=== PATIENT | female | born 1975 | race Caucasian/White ===

== ENCOUNTER 2023-09-03 09:14 | Emergency (ER) | payer MEDICAID, SELFPAY ==
[2023-09-03 09:15] VITALS: BP 152/92; PULSE 92; RESP 18; TEMP 36.4; O2SAT 98; BMI 30.3
--- NOTE | 2023-09-03 09:21 | EDS_ITS ---
HPI History of Present Illness HPI Narrative: Patient presents with redness and swelling to her right great toe that has been getting worse over the past week. Patient states it is gradually getting worse. Patient describes her pain as sharp. Patient states it is worse with ambulation. Patient states nothing seems to help with the pain. Patient denies any paresthesias or weakness. Patient denies any fevers or chills. Patient admits to some purulent drainage from along the right great toenail margin. Patient denies any trauma or injury. Chief Complaint: Wound Informant: patient Onset/Context/Timing Onset: Weeks (1) Context: Gradual Onset Timing: Continuous Quality of Pain: Sharp Location: Right great toe Worsened by: Ambulation Relieved by: Rest Associated Symptoms Associated Symptoms: Negative for Parasthesia or Weakness Narrative Tetanus Immunization: 5-10 years [facility] Medical History (Updated 09/03/23 @ 11:[address] Cesar Simpson, ) Hypercholesterolemia Hypertension Diabetes mellitus Home Medications ?Medication ?Instructions ?Recorded ?Last Taken ?Type cephalexin 500 mg capsule 500 mg PO Q6 #40 CAPSULES 09/03/23 Unknown Rx Allergy/AdvReac Type Severity Reaction Status Date / Time acetaminophen (From Allergy PT UNABLE Verified 09/03/23 09:15 Darvocet-N) TO RESPOND-NEEDS F/U propoxyphene (From Allergy PT UNABLE Verified 09/03/23 09:15 Darvocet-N) TO RESPOND-NEEDS F/U Surgical History (Updated 09/03/23 @ 11:[address] Cesar Simpson, ) Hx of oophorectomy Hx of cholecystectomy Hx of appendectomy Social History (Updated 09/03/23 @ 11:[address] Cesar Simpson DO) Smoking Status: Current every day smoker tobacco type: cigarettes ROS ROS ED Constitutional Constitutional ED: Denies chills or fever(s) Eyes Eyes: Denies blurry vision or change in vision ENT ENT ED: Denies rhinorrhea or sore throat Cardiovascular Cardiovascular: Denies chest pain or palpitations Respiratory/Chest Respiratory/Chest: Denies cough or dyspnea Gastrointestinal Gastrointestinal: Reports nausea and vomiting Genitourinary Genitourinary ED: Denies dysuria or hematuria Musculoskeletal Musculoskeletal: Denies back pain or neck pain Integumentary Denies abscess or rash Neurologic Neurologic: Reports headache(s); Denies weakness Allergic/Immunologic Allergic/Immunologic ED: Denies mouth swelling or urticaria EXAM Physical Exam Const Vital Signs: 09/03/23 09:15 Temperature 97.6 F L Temperature Source Temporal Pulse Rate 92 Respiratory Rate 18 Blood Pressure 152/92 H Blood Pressure Mean 112 Pulse Ox 98 Oxygen Delivery Method Room Air Positive well nourished and well developed General Appearance ED: well developed and NAD HEENT Reports moist mucous membranes Neck full ROM and supple Extremity Extremity Narrative: There is edema, erythema, and tenderness over the right great toe along the lateral nail margin. There is some mild purulent drainage noted. There is no fluctuance noted. Sensation was intact to light touch in all digits. Capillary refill was less than 2 seconds in all digits. Pedal pulses are equal bilaterally. There is good range of motion of the right great toe. Neuro oriented x3, CN's II-XII intact bilaterally, moves all extremities and no sensory deficits noted Sensorium / Orientation: alert Motor Exam: strength 5/5 throughout Psych mental status grossly normal MDM MDM MDM Narrative Medical decision making narrative: Differential diagnosis includes paronychia, osteomyelitis, diabetic foot wound, and cellulitis. CBC will be obtained to assess for leukocytosis. Basic metabolic profile will be obtained to assess for electrolyte abnormality and renal function. X-rays of the right foot will be obtained to assess for osteomyelitis. Treatment and Re-Evaluation Narrative: Patient was given a dose of Ancef here. Patient was advised of her findings. Patient was given a prescription for Keflex. Patient was instructed to clean the wounds at least twice daily. Patient was instructed use warm water soaks. Patient was instructed to follow-up with her primary care physician in 3 to 5 days for reevaluation. Patient understood and was agreeable with the plan. All questions were answered. Discharge Plan Triage Chief Complaint: Wound ED Provider: Cesar Simpson Dx/Rx/DC Orders Clinical Impression: Paronychia of great toe, right, Hypertension, Tobacco use disorder, Diabetes mellitus Instructions: ED Paronychia of the Finger or Toe Prescriptions: New cephalexin 500 mg capsule 500 mg PO Q6 Qty: 40 0RF Print Language: Turkish Disposition Disposition: Home, Self Care
[2023-09-03 09:23] VITALS: BP 152/92; PULSE 92; RESP 18; TEMP 36.4; O2SAT 98
--- NOTE | 2023-09-03 09:38 | RAD_ITS ---
STUDY: X-RAY - RIGHT FOOT CLINICAL: Female, 47 years old. Injury/Pain TECHNIQUE: 3 view(s) of the foot. COMPARISON: None. FINDINGS: Normal talus, calcaneus, and tarsal bones. Normal visualized subtalar, talonavicular, calcaneocuboid, tarsal and tarsometatarsal articulations. Normal metatarsi. Normal metatarsophalangeal joint of the great toe. Normal tibial and fibular sesamoid bones. Normal interphalangeal joint of the great toe. Normal phalanges of the great toe. Normal second through fifth metatarsophalangeal joints. Normal interphalangeal joints and phalanges of the lesser toes. The soft tissue structures are unremarkable. There is no demonstrated fracture. RAD/Foot min 3 Views IMPRESSION: Normal x-ray examination of the foot. Electronically Signed: Edwin Gomez MD at 10:53 EDT ,
[2023-09-03] MEDS: Cefazolin 1 GM/50 ML BAG IV (10:06)
[2023-09-03 10:14] LABS: Absolute Lymphocyte Count 3.29 X10^3/uL (0.83-4.51); Absolute Neutrophil Count 7.1 X10^3/uL (2.0-7.7); Basophil# 0.04 X10^3/uL; Basophil% 0.3 % (0-1); Eosinophil# 0.26 X10^3/uL; Eosinophils% 2.2 % (0-5); Hematocrit 37.9 % (37-47); Hemoglobin 12.8 g/dL (12.0-15.0); Lymphocyte # 3.29 X10^3/ul (0.83-4.51); Lymphocyte % 28.3 % (19-41); Mean Corp Hgb Conc 33.8 g/dL (32-36); Mean Corpuscular Volume 85.9 fL (81-99); Mean Platelet Vol. 9.8 fl (6.2-12.0); Monocyte# 0.89 X10^3/uL; Monocyte% 7.7 % (0-10); NRBC Flagged by Analyzer 0 % (0-5); Neutrophil % 61.2 % (47-70); Platelet Count 317 K/mm3 (150-450); RBC Distribution Width CV 12.5 % (11.6-14.6); RBC Distribution Width SD 39.1 fl (35.1-43.9); Red Blood Count 4.41 M/mm3 (4.2-5.4); White Blood Count 11.6 K/mm3 (4.4-11.0)
[2023-09-03 10:17] VITALS: BP 152/92; PULSE 98; RESP 14; TEMP 36.4; O2SAT 98
[2023-09-03 10:23] LABS: Anion Gap 5 (5-15); BUN 18 mg/dL (7-18); BUN/Creat Ratio 19.4 RATIO (10-20); Calcium,Total 9.5 mg/dL (8.5-10.1); Chloride 100 mmol/L (98-107); Creatinine, Serum 0.93 mg/dL (0.55-1.02); EST Glomerular Filtration Rate 68 mL/min (>60); Est Glom Filt Rate - Afr Amer 83 mL/min (>60); Estimated Creatinine Clearance 75.81 ml/min; Glucose 351 mg/dL (74-106); Potassium 4.4 mmol/L (3.5-5.1); Sodium Level 134 mmol/L (136-145)
[2023-09-03 11:29] VITALS: BP 156/77; PULSE 88; RESP 14; TEMP 37; O2SAT 99
== END 2023-09-03 11:30 | disposition home or self-care (01) ==
LOC: ED 11:23
PROVIDERS: Emergency Provider Emergency Medicine; Visit Provider Emergency Medicine
DX: L03.031 Cellulitis of right toe (principal); E11.9 Type 2 diabetes mellitus without complications; I10 Essential (primary) hypertension; E78.00 Pure hypercholesterolemia, unspecified; F17.210 Nicotine dependence, cigarettes, uncomplicated
CPT/HCPCS: 73630; 80048; 85025; 96365; 99283

== ENCOUNTER 2023-10-09 15:29 | Emergency (ER) | payer MEDICAID, SELFPAY ==
[2023-10-09 15:31] VITALS: BP 155/82; PULSE 89; RESP 18; TEMP 36.1; O2SAT 97; BMI 29.1
--- NOTE | 2023-10-09 15:44 | EX.ED.GENINJ ---
HPI History of Present Illness Chief Complaint: Head Injury Informant: patient Onset/Context/Timing Onset: Days (2 days ago) Mechanism/Context: Blunt Injury and Incised Location of pain/injuries: - (Right temporal area) Quality of Pain: Sharp Location: Right temporal area Worsened by: Bright lights Relieved by: Nothing Associated Symptoms Associated Symptoms: Negative for Parasthesias, Weakness, Loss of function, Inability to ambulate, Loss of consciousness or Amnesia Narrative Narrative: Patient presents with a head injury that occurred 2 days ago. Patient states she was on the left and hit her head on a metal shelf. Patient states she did have a open wound to her right temporal area. Patient states the bleeding stopped after couple minutes. Patient states she cleaned the area with peroxide after work. Patient states the pain has been getting progressively worse. Patient describes the pain as sharp. Patient states it is worse with bright lights. Patient states nothing seems to help with it. Patient denies any loss of consciousness. Patient admits to some subjective fevers and chills. Tetanus Immunization: 5-10 years [facility] Medical History Hypercholesterolemia Hypertension Diabetes mellitus Home Medications ?Medication ?Instructions ?Recorded ?Last Taken ?Type cephalexin 500 mg capsule 500 mg PO Q6 #40 CAPSULES 10/09/23 Unknown Rx Allergy/AdvReac Type Severity Reaction Status Date / Time acetaminophen (From Allergy PT UNABLE Verified 10/09/23 15:30 Darvocet-N) TO RESPOND-NEEDS F/U Fish Containing Products Allergy Anaphylaxis Verified 10/09/23 15:30 (seafood) propoxyphene (From Allergy PT UNABLE Verified 10/09/23 15:30 Darvocet-N) TO RESPOND-NEEDS F/U Surgical History Hx of oophorectomy Hx of cholecystectomy Hx of appendectomy Social History Smoking Status: Former smoker ROS ROS ED Constitutional Constitutional ED: Reports chills, fever(s) and subjective Eyes Eyes: Denies blurry vision or change in vision ENT ENT ED: Denies rhinorrhea or sore throat Cardiovascular Cardiovascular: Denies chest pain or palpitations Respiratory/Chest Respiratory/Chest: Reports cough; Denies dyspnea Gastrointestinal Gastrointestinal: Reports nausea and vomiting Genitourinary Genitourinary ED: Denies dysuria or hematuria Musculoskeletal Musculoskeletal: Reports back pain; Denies neck pain Integumentary Denies abscess or rash Neurologic Neurologic: Reports headache(s); Denies weakness Allergic/Immunologic Allergic/Immunologic ED: Denies mouth swelling or urticaria EXAM Physical Exam Const Vital Signs: 10/09/23 15:31 10/09/23 15:41 Temperature 97 F L Temperature Source Temporal Pulse Rate 89 Respiratory Rate 18 Respiratory Effort Normal Non-Labored Respiratory Depth Normal Respiratory Pattern Normal Blood Pressure 155/82 H Blood Pressure Mean 106 Pulse Ox 97 Oxygen Delivery Method Room Air Room Air Positive well nourished and well developed General Appearance ED: well developed and NAD HEENT HEENT Narrative: There is tenderness, erythema, and mild fluctuance over the right temporal area. There is a pustule noted. There is no active discharge or drainage noted. There is no bony crepitance or step-off noted. Neck full ROM Neuro oriented x3, CN's II-XII intact bilaterally, moves all extremities, no focal motor deficits and no sensory deficits noted [place] Coma Scale: document GCS findings Spontaneous Obeys Commands Oriented 15 Sensorium / Orientation: alert Motor Exam: strength 5/5 throughout Psych thought process normal MDM MDM MDM Narrative Medical decision making narrative: Patient was advised of the need for incision and drainage. Patient is agreeable with this. Informed consent was obtained. The area was cleaned with chlorhexidine prep. The area was anesthetized with 1% plain lidocaine locally. A small cruciate incision was made using an 11 blade scalpel. A large amount of purulent drainage was expressed. The wound was left open. Bacitracin dressing was applied. Patient tolerated the procedure well. Patient was instructed to use warm compresses. Patient was given a dose of Keflex here. Patient was given a prescription for Keflex. Patient was instructed to follow-up with her primary care physician in 5 to 7 days. Patient understood and was agreeable with the plan. All questions were answered. Discharge Plan Triage Chief Complaint: Head Injury ED Provider: Cesar Simpson Dx/Rx/DC Orders Clinical Impression: Abscess of scalp, Diabetes mellitus Instructions: ED Abscess Incision And Drainage Prescriptions: Continued cephalexin 500 mg capsule 500 mg PO Q6 Qty: 40 0RF Primary Care Provider: Care Physician,No Primary Referrals: Care Physician,No Primary [Primary Care Provider] - Print Language: Luxembourgish Disposition Disposition: Home, Self Care
[2023-10-09] MEDS: Cephalexin 500 MG Capsule PO (15:57)
[2023-10-09] MEDS: Lidocaine 1% (20 ml mdv) 20 ML Vial INFILT (15:58)
[2023-10-09 16:46] VITALS: BP 160/90; PULSE 71; RESP 16; TEMP 36.9; O2SAT 97
== END 2023-10-09 16:47 | disposition home or self-care (01) ==
PROVIDERS: Emergency Provider Emergency Medicine; Visit Provider Emergency Medicine
DX: L02.811 Cutaneous abscess of head [any part, except face] (principal); E11.9 Type 2 diabetes mellitus without complications; R05.9 Cough, unspecified; R11.2 Nausea with vomiting, unspecified; R68.83 Chills (without fever); I10 Essential (primary) hypertension; E78.00 Pure hypercholesterolemia, unspecified; Z87.891 Personal history of nicotine dependence
CPT/HCPCS: 10060; 99285

== ENCOUNTER 2023-11-11 13:17 | Emergency (ER) | payer MEDICAID, SELFPAY ==
[2023-11-11 13:18] VITALS: BP 103/74; PULSE 81; RESP 18; TEMP 35.9; O2SAT 98; BMI 28.0
[2023-11-11 13:44] VITALS: O2SAT 98
[2023-11-11 13:49] VITALS: BP 121/71; PULSE 72; RESP 18; O2SAT 99
[2023-11-11 13:49] LABS: Absolute Lymphocyte Count 3.58 X10^3/uL (0.83-4.51); Absolute Neutrophil Count 6.1 X10^3/uL (2.0-7.7); Basophil# 0.05 X10^3/uL; Basophil% 0.5 % (0-1); Eosinophil# 0.28 X10^3/uL; Eosinophils% 2.6 % (0-5); Hematocrit 36.5 % (37-47); Hemoglobin 12.2 g/dL (12.0-15.0); Lymphocyte # 3.58 X10^3/ul (0.83-4.51); Lymphocyte % 33.6 % (19-41); Mean Corp Hgb Conc 33.4 g/dL (32-36); Mean Corpuscular Hgb 29.7 pg (27.0-32.0); Mean Corpuscular Volume 88.8 fL (81-99); Mean Platelet Vol. 9.9 fl (6.2-12.0); Monocyte# 0.66 X10^3/uL; Monocyte% 6.2 % (0-10); NRBC Flagged by Analyzer 0 % (0-5); Neutrophil # 6.06 X10^3/uL (2.7-7.7); Neutrophil % 56.8 % (47-70); Platelet Count 325 K/mm3 (150-450); RBC Distribution Width CV 13.2 % (11.6-14.6); RBC Distribution Width SD 42.6 fl (35.1-43.9); Red Blood Count 4.11 M/mm3 (4.2-5.4); White Blood Count 10.7 K/mm3 (4.4-11.0)
[2023-11-11 13:58] LABS: Internal QC Validated? YES +Cl - CLEAR BKGD; Pregnancy, Serum, hCG Quali. NEGATIVE Negative
[2023-11-11 14:05] LABS: ALB/GLOB Ratio 0.9 RATIO (0.9-2.4); AST(SGOT) 16 U/L (15-37); Alanine Aminotransfer ALT/SGPT 18 U/L (13-56); Albumin, Serum 3.5 g/dL (3.2-5.0); Alkaline Phosphatase 134 U/L (45-117); Anion Gap 4 (5-15); BUN 15 mg/dL (7-18); BUN/Creat Ratio 14.3 RATIO (10-20); Calcium,Total 9.7 mg/dL (8.5-10.1); Chloride 105 mmol/L (98-107); Creatinine, Serum 1.05 mg/dL (0.55-1.02); EST Glomerular Filtration Rate 59 mL/min (>60); Est Glom Filt Rate - Afr Amer 72 mL/min (>60); Estimated Creatinine Clearance 63.97 ml/min; Glucose 205 mg/dL (74-106); Potassium 3.9 mmol/L (3.5-5.1); Protein, Total 7.5 g/dL (6.4-8.2); Sodium Level 138 mmol/L (136-145)
--- NOTE | 2023-11-11 14:45 | EKG12_ITS ---
Test Reason : CP Blood Pressure : / mmHG Vent. Rate : 068 BPM Atrial Rate : 068 BPM P-R Int : 168 ms QRS Dur : 086 ms QT Int : 412 ms P-R-T Axes : 046 023 066 degrees QTc Int : 438 ms Normal sinus rhythm Normal ECG Confirmed by Juventino Corona ([id number]), editor trade journal ERASTO ADEN ([id number]) on 11/14/2023 9:24:10 AM Referred By: Confirmed By:Juventino Corona
--- NOTE | 2023-11-11 14:48 | NURSING ---
NO OLD EKGS
--- NOTE | 2023-11-11 15:10 | RAD_ITS ---
STUDY: X-RAY CHEST REASON FOR EXAM: Female, 48 years old. Cough, right-sided chest pain TECHNIQUE: PA and lateral views of the chest. COMPARISON: None. FINDINGS: The lungs are clear and expanded. There is no demonstrated pleural abnormality. Normal size heart. Normal mediastinum and mary. Normal visualized pulmonary arteries. Normal visualized aortic arch and descending thoracic aorta. Normal visualized thoracic spine. Normal visualized ribs, clavicles, and shoulders. There is no demonstrated abnormality of the visualized soft tissue structures of the upper abdomen. RAD/Chest PA and Lateral IMPRESSION: Normal x-ray examination of the chest. Electronically Signed: Blake Mckay MD at 15:30 EDT ,
[2023-11-11 15:17] VITALS: BP 99/80; PULSE 67; RESP 18; O2SAT 99
--- NOTE | 2023-11-11 15:18 | EX.ED.DYSGE1 ---
HPI History of Present Illness Chief Complaint: Nausea/Vomiting/Diarrhea Detail of Chief Complaint: Respiratory and GI symptoms. Informant: patient Onset/Context/Timing Onset: Days (3 days ago) Context: Sudden Onset Timing: Intermittent Quality: Cough with chest pain on the right and N/V/D Location: Respiratory and GI Current Severity: Mild Maximum Severity: Moderate Worsened by: Nothing Relieved by: Nothing Associated Symptoms Associated Symptoms: upper respiratory and GI symptoms Narrative Narrative: Patient is a 48-year-old female who presents with nausea, vomit diarrhea started 3 days ago. She has vomited greater than 12 times. She has had loose watery stool without blood or mucus. She denies fever or chills. She does have a cough that is nonproductive with right-sided chest discomfort. She denies headache. Denies visual, ocular auditory symptoms. She denies rhinorrhea, congestion, postnasal drainage sore throat. Denies neck pain or neck stiffness. Patient has cough that is essentially nonproductive. She has right-sided chest pain. She does complain of abdominal pain with vomiting diarrhea. It is generalized. She denies hematemesis. She denies black or maroon-colored stool. She has not been around anyone's been ill. She has no history of inflammatory bowel disorder. She has not been on antibiotics in the past month. Patient denies dysuria, frequency, urgency or hematuria. Patient does endorse decreased urine output. She also endorses thirst and dry mouth. Prior similar symptoms: Yes Recent Illness/Hospitalization: No PFSH PFSH Medical History Hypercholesterolemia Hypertension Diabetes mellitus Home Medications ?Medication ?Instructions ?Recorded ?Last Taken ?Type cephalexin 500 mg capsule 500 mg PO Q6 #40 CAPSULES 10/09/23 Unknown Rx Allergy/AdvReac Type Severity Reaction Status Date / Time acetaminophen (From Allergy PT UNABLE Verified 11/11/23 13:18 Darvocet-N) TO RESPOND-NEEDS F/U Fish Containing Products Allergy Anaphylaxis Verified 11/11/23 13:18 (seafood) propoxyphene (From Allergy PT UNABLE Verified 11/11/23 13:18 Darvocet-N) TO RESPOND-NEEDS F/U Surgical History Hx of oophorectomy Hx of cholecystectomy Hx of appendectomy Social History Smoking Status: Former smoker ROS ROS ED Constitutional Constitutional ED: Denies chills, fever(s), subjective, sweats or weight loss Eyes Eyes: Denies blurry vision or change in vision ENT ENT ED: Denies ear pain, rhinorrhea or sore throat Cardiovascular Cardiovascular: Reports chest pain; Denies orthopnea, palpitations, paroxysmal nocturnal dyspnea or racing heartbeat Respiratory/Chest Respiratory/Chest: Reports cough and dyspnea; Denies dyspnea on exertion, orthopnea, paroxysmal nocturnal dyspnea or sputum Gastrointestinal Gastrointestinal: Reports abdominal pain, diarrhea, nausea and vomiting; Denies constipation or melena Genitourinary Genitourinary ED: Denies dysuria, hematuria or urinary frequency Musculoskeletal Musculoskeletal: Denies arthralgias or myalgias Integumentary Denies rash Neurologic Neurologic: Reports weakness; Denies headache(s) Hematologic/Lymphatic Hematologic/Lymphatic: Reports systems reviewed and no addt'l complaints, except as documented EXAM Physical Exam Const Vital Signs: 11/11/23 13:18 11/11/23 13:44 11/11/23 13:49 Temperature 96.7 F L Temperature Source Temporal Pulse Rate 81 72 Respiratory Rate 18 18 Respiratory Effort Normal Respiratory Depth Normal Blood Pressure 103/74 121/71 H Blood Pressure Mean 83 87 Pulse Ox 98 99 Oxygen Delivery Method Room Air Room Air Room Air 11/11/23 15:17 Temperature Temperature Source Pulse Rate 67 Respiratory Rate 18 Respiratory Effort Respiratory Depth Blood Pressure 99/80 Blood Pressure Mean 86 Pulse Ox 99 Oxygen Delivery Method Room Air Positive well nourished and well developed Constitutional Narrative: Patient appears ill. Not appear well. She has wounds noted on her head and torso. She states this is due to. She owned that would pick at her skin. General Appearance ED: well developed and NAD HEENT Reports dry mucous membranes HEENT Narrative: Ears normal. TMs normal. Nares patent. Posterior pharynx out erythema or exudate. Mouth ED: Yes dry mucous membranes Mouth: dry mucous membranes Eyes PERRL and EOMs intact bilaterally General Eye ED: Negative for pale conjunctiva or scleral icterus Neck no lymphadenopathy, supple and no JVD Chest Wall inspection of chest normal and palpation of chest normal Resp normal respiratory effort and clear to auscultation bilaterally Cardio regular rate, regular rhythm, S1 normal heart sound, S2 normal heart sound and no murmurs GI non-distended and no masses; Negative for normal to inspection, nondistended, normoactive bowel sounds, non-tender or hepatosplenomegaly Auscultation: hypoactive bowel sounds Palpation: soft and tender epigastric; Negative for guarding, splenomegaly or rebound tenderness present Back/Spine no CVA tenderness Extremity normal to inspection General Extremety ED: Negative for edema or tenderness General Extremity: Negative for edema Neuro oriented x3, CN's II-XII intact bilaterally and no sensory deficits noted Sensorium / Orientation: alert Motor Exam: strength 5/5 throughout Psych Mood & Affect: depressed Skin Skin Narrative: Wound secondary to [place] biting her/picking at her. MDM MDM MDM Narrative Medical decision making narrative: With history of diabetes with significant mount of nausea vomiting will obtain BMP to assess glucose, anion gap as well as renal function. Will obtain CBC to assess white count differential and rule out anemia since she appears pale. Chest x-ray is obtained to evaluate for pneumonia Lab Data Attestation: I reviewed the patient's lab results. Lab results narrative: CBC is normal. Basic metabolic panel reveals a BUN of 50 and a creatinine of 1.05. The creatinine is elevated compared to baseline. test was negative. Liver profile was unremarkable. Labs: Laboratory Results - last 24 hr 11/11/23 11/11/23 13:40 15:50 WBC 10.7 RBC 4.11 L Hgb 12.2 Hct 36.5 L MCV 88.8 MCH 29.7 MCHC 33.4 RDW Std Deviation 42.6 RDW Coeff of [place] 13.2 Plt Count 325 MPV 9.9 Immature Gran % (Auto) 0.300 Neut % (Auto) 56.8 Lymph % (Auto) 33.6 [place] % (Auto) 6.2 Eos % (Auto) 2.6 Baso % (Auto) 0.5 Absolute Neuts (auto) 6.1 Absolute Lymphs (auto) 3.58 Nucleated RBC % 0 Sodium 138 Potassium 3.9 Chloride 105 Carbon Dioxide 29.0 Anion Gap 4 L BUN 15 Creatinine 1.05 H Estim Creat Clear Calc 63.97 Est GFR (MDRD) Af Amer 72 Est GFR (MDRD) Non-Af 59 L BUN/Creatinine Ratio 14.3 Glucose 205 H Calcium 9.7 Total Bilirubin 0.20 AST 16 ALT 18 Alkaline Phosphatase 134 H Total Protein 7.5 Albumin 3.5 Globulin 4.0 Albumin/Globulin Ratio 0.9 Serum , Qual NEGATIVE Urine Color Yellow Urine Clarity Cloudy Urine pH 6.0 Ur Specific [place] 1.015 Urine Protein 30 H Urine Glucose (UA) 250 H Urine Ketones Negative Urine Occult Blood 25 H Urine Nitrite Negative Urine Bilirubin Negative Urine Urobilinogen Normal Ur Leukocyte Esterase 500 H Urine RBC 0 SEEN Urine WBC 0 SEEN Ur Squamous Epith Cells 0 SEEN Urine Bacteria 0 SEEN Urine Mucus 0 SEEN Urine is without evidence of infection. There is glucose, protein and occult blood. Leukoesterase was positive as well. Micro revealed 0 RBCs, WBCs, squamous epithelial cells and bacteria. Radiography Chest X-Ray - ED: 2 View and Read by ED Physician (Independent reviewed interpreted by me at 1518. Cardiac silhouette size normal. Lung parenchyma normal. No evidence of effusion. [place] is normal. [place] structures are unremarkable.) Diagnostic Testing: Clinical Impression(s) from Imaging Studies Chest X-Ray 11/11/23 15:10 IMPRESSION: Normal x-ray examination of the chest. Electronically Signed: Blake Mckay MD at 15:30 EDT , EKG Initial EKG: Attestation: I personally reviewed and interpreted this EKG as follows: Interpretation: Sinus Rhythm (Rate is 68. EKG is normal. MA interval is under 68 ms per cures duration 86 ms. QT duration 412 ms. [place] is normal) Treatment and Re-Evaluation :: Patient was reassessed at 1525. Patient feels better. She is less nauseous. She does not have urge to urinate. If she still does not have urge to urinate after completion of liter will order second liter of normal saline. Discharge Plan Triage Chief Complaint: Nausea/Vomiting/Diarrhea Other Complaint: Cough ED Provider: Tim Peterson Dx/Rx/DC Orders Clinical Impression: Nausea vomiting and diarrhea, Diabetes mellitus, Hypertension, Hypercholesterolemia, Acute dehydration, Cough, Viral syndrome Instructions: ED Diet Vomiting Diarrhea Prescriptions: No Action cephalexin 500 mg capsule 500 mg PO Q6 Qty: 40 0RF Primary Care Provider: Care Physician,No Primary Referrals: Care Physician,No Primary [Primary Care Provider] - Activity Restrictions/Additional Instructions: The name of your doctor is located on your insurance card issued to you by [employer] Print Language: [place] Disposition Disposition: Home, Self Care
[2023-11-11 15:56] LABS: Bacteria 0 SEEN /hpf (None Seen); Mucous, Urine 0 SEEN /hpf (<or=2+); Red Blood Cells-Urine 0 SEEN /hpf (0-5); Squamous Epithelial Cells - UA 0 SEEN /hpf (5-10); White Blood Cells 0 SEEN /hpf (0-5)
[2023-11-11 16:11] LABS: Color, Urine Yellow (Yellow); Glucose, Dipstick 250 mg/dl (Normal); Ketone-Dipstick Negative (Negative); Leukocyte Esterase-Dipstick 500 /ul (Negative); Nitrite-Dipstick Negative (Negative); Occult Blood-Urine 25 /ul (Negative); Protein-Dipstick 30 mg/dl (Negative); Specific Gravity, Urine 1.015 (1.002-1.030); Urine Bilirubin Dipstick Negative (Negative); Urine Clarity Cloudy (Clear); Urine Urobilinogen Normal (Normal)
[2023-11-11 16:46] VITALS: BP 143/68; PULSE 66; RESP 16; TEMP 36.8; O2SAT 100
== END 2023-11-11 16:49 | disposition home or self-care (01) ==
PROVIDERS: Emergency Provider Emergency Medicine; Visit Provider Emergency Medicine
DX: B34.9 Viral infection, unspecified (principal); E11.9 Type 2 diabetes mellitus without complications; R11.2 Nausea with vomiting, unspecified; Z87.891 Personal history of nicotine dependence; I10 Essential (primary) hypertension; R19.7 Diarrhea, unspecified; R05.9 Cough, unspecified; E78.00 Pure hypercholesterolemia, unspecified; E86.0 Dehydration; Z90.49 Acquired absence of other specified parts of digestive tract
CPT/HCPCS: 71046; 80053; 81001; 84703; 85025; 93005; 96361; 96374; 99285; A4216; J2405